=== PATIENT | male | born 1950 | race Caucasian/White ===

== ENCOUNTER 2025-05-12 10:37 | Emergency (ER) | payer MEDICARE, SELFPAY ==
--- NOTE | ~2025-05-12 | CT_ITS ---
EXAMINATION: CT ABDOMEN AND PELVIS WITHOUT CONTRAST CLINICAL INFORMATION: Left flank pain. COMPARISON: None available. TECHNIQUE: Multidetector volumetric imaging was performed from the superior aspect of the liver through the pubic symphysis. Sagittal and coronal reformatted images were obtained on the technologist's workstation. This CT examination was performed using dose optimization techniques as appropriate, variously including the following: *Automated exposure control *Adjustment of mA and/or kV according to patient size (this includes techniques or standardized protocols for targeted exams where dose is matched to indication/reason for exam; i.e. extremities or head) *Use of iterative reconstruction technique FINDINGS: LUNG BASES: 4 mm nodule posterior right lower lobe (series 8, image 3). This is nonspecific and likely a noncalcified granuloma. Follow-up in one year recommended in a high-risk patient. There are calcified granulomata in the right lower lobe. Lung bases otherwise clear. No effusions. Heart size is normal. LIVER, GALLBLADDER, AND BILIARY TREE: The unenhanced liver is normal in size, shape, and attenuation. No focal hepatic lesion or biliary ductal dilatation is present. The gallbladder is surgically absent. PANCREAS: Unremarkable. SPLEEN: Unremarkable. ADRENAL GLANDS: Unremarkable. KIDNEYS AND URETERS: There is moderate left hydronephrosis and proximal hydroureter. There is an obstructing 6 mm calculus in the distal left ureter, a few centimeters proximal to the UVJ. The left kidney is otherwise normal. The right kidney has a normal appearance. The right ureter is nondilated. BLADDER: Suboptimally distended but grossly normal. GASTROINTESTINAL TRACT: The small and large bowel are unremarkable. The appendix is unremarkable. ABDOMINAL WALL: No significant hernia is appreciated. LYMPH NODES: No abnormal lymphadenopathy is present. VASCULAR: There is moderate atheromatous calcification of the aorta and iliac vessels. There is no aneurysm. PELVIC VISCERA: The prostate is minimally enlarged, measuring 4.5 cm in diameter. OSSEOUS STRUCTURES: There is no suspicious lytic or blastic bone lesion. There are extensive degenerative changes throughout the imaged spine, with a mild right convex lumbar scoliosis. There are mild hip joint degenerative changes bilaterally. CT/CT abdomen pelvis wo IV con IMPRESSION: 1. Moderate left hydronephrosis and hydroureter secondary to a 6 mm obstructing calculus in the distal left ureter. 2. No additional renal or ureteral calculi. 3. Additional ancillary findings as detailed in the body of the report. Electronically signed by: Wing Redman MD 05/12/2025 12:13 PM EDT RP
[2025-05-12 10:50] VITALS: BP 154/94; PULSE 84; RESP 16; TEMP 36.7; O2SAT 97; BMI 31.3
--- NOTE | 2025-05-12 10:58 | ED_ITS ---
HPI - General Adult General Chief complaint: Abdominal Pain Stated complaint: L Side- Lower Abd Pain Time Seen by Provider: 05/12/25 14:23 Source: patient and group manager Mode of arrival: ambulatory Limitations: language barrier (Cymro-speaking) History of Present Illness ED Provider: Fritz Webb PA-C HPI narrative: 74-year-old Cymro-speaking male accompanied by his daughter with medical history of hyperthyroidism, kidney stones, who resides full-time in [place] presents to the ED due to 3 days of left-sided abdominal pain, flank pain, difficulty urinating. Patient states he follows a doctor in [place] and has had two medical interventions for kidney stones in the past. Patient states he was aware of this current kidney stone, and his doctor in [place] has been evaluating and following this kidney stone waiting for it to descend and pass. Denies chest pain, shortness of breath, nausea, vomiting, black or tarry stool MD complaint: L flank pain Onset (ago): day(s) (3) Location: abdomen Radiation: other (Groin) Severity: moderate Quality: aching Pain Consistency: constant Relieving factors: none Exacerbating factors: none Associated symptoms: other (Dysuria) Treatments prior to arrival: none Related Data Previous Rx's ?Medication ?Instructions ?Recorded prednisone 20 mg tablet 20 mg PO DAILY 5 days #5 tab s 05/12/25 tamsulosin 0.4 mg capsule 0.4 mg PO DAILY 2 weeks #14 caps 05/12/25 Allergies Allergy/AdvReac Type Severity Reaction Status Date / Time No Known Allergies Allergy Verified 05/12/25 10:52 Review of Systems 2 Review of Systems: CONST: Negative for fever, body aches and chills. HENT: Negative for neck pain/stiffness, headache, congestion, sore throat, swelling. EYES: Negative for discharge/pain or vision changes. RESP: Negative for cough/hemoptysis and shortness of breath. CV: Negative chest pain, difficulty breathing, palpitations. ABD: Negative nausea, vomiting. POS L flank pain, radiating to LLQ and to L groin : Negative increase frequency, dysuria, blood in urine or stool. MUSC: Negative for muscle aches, edema. SKIN: Negative rash, lesions/sores. NEURO: Negative headache, dizziness, weakness. Yes all other systems are reviewed and are negative PMFSH Past Medical History Attestation statement: The following information was validated with the patient. Source: old records reviewed and obtained from family (Daughter at bedside corroborating history) Social History Social History Smoked in Last 30 Days: No Use of substances other than those prescribed or required for medical reasons: No Advance Directives: No Advance Directives Information Provided: No Do you have a plan to hurt others: No Plan Physical Exam ED Vital Signs: Vital Signs - 24 hr 05/12/25 10:50 05/12/25 14:39 05/12/25 15:38 Temperature 98.1 F Pulse Rate 84 73 66 Respiratory Rate 16 16 18 Blood Pressure 154/94 H 161/85 H 154/88 H Pulse Oximetry 97 99 96 Oxygen Delivery Method Room Air Room Air Room Air 05/12/25 16:27 05/12/25 17:48 Temperature 98.4 F 98.4 F Pulse Rate 67 67 Respiratory Rate 15 15 Blood Pressure 145/92 H 145/92 H Pulse Oximetry 96 96 Oxygen Delivery Method Room Air Room Air BMI result Body Mass Index 31.3 GENERAL APPEARANCE: ?AxOx4, generally well-appearing, no acute distress. HEENT: ?NC, AT. MMM. EOMI, clear conjunctiva, oropharynx clear. HEART:? Normal rate and regular rhythm, normal S1/S1, no m/r/g LUNGS:? CTAB, moving air well. No crackles or wheezes are heard. ABDOMEN: ?Soft, nontender, nondistended with good bowel sounds heard. BACK: No CVAT, no obvious deformity. L CVA TTP, no masses of L groin. No overlying skin changes EXTREMITIES: ?Without cyanosis, clubbing or edema. NEUROLOGICAL: ?Grossly nonfocal. Alert and oriented, moving all 4 extremities. Observed to ambulate with normal gait. Skin: ?Warm and dry without any rash. Course Course Course Narrative: RME, this is a rapid medical exam performed by Prashanth Hurtado please refer to primary provider for complete H&P- 74-year-old male presents for evaluation left-sided abdominal pain radiating to his groin for few days. He does have a history kidney stones. Plan for labs, urinalysis Medications Administered Discontinued Medications Generic Name Dose Route Start Last Admin Trade Name Freq PRN Reason Stop Dose Admin Lactated Ringer's 500 mls @ 999 mls/hr 05/12/25 16:30 05/12/25 17:20 Lr IV 05/12/25 17:00 Infused .Q31M ALISTAIR Infusion Ketorolac Tromethamine 15 mg 05/12/25 15:04 05/12/25 15:36 Ketorolac Tromethamine 15 Mg/Ml Vial IVPUSH 05/12/25 15:05 15 mg ONCE ONE Administration Prednisone 20 mg 05/12/25 16:19 05/12/25 16:40 Prednisone 20 Mg Tablet PO 05/12/25 16:20 20 mg ONCE ONE Administration Tamsulosin HCl 0.4 mg 05/12/25 16:19 05/12/25 16:40 Tamsulosin Hcl 0.4 Mg Capsule PO 05/12/25 16:20 0.4 mg ONCE ONE Administration Medical Decision Making Medical Decision Making MDM Narrative: 74-year-old Cymro-speaking male accompanied by his daughter with medical history of hyperthyroidism, kidney stones, who resides full-time in [place] presents to the ED due to 3 days of left-sided abdominal pain, flank pain, difficulty urinating. Patient states he follows a doctor in [place] and has had two medical interventions for kidney stones in the past. Patient states he was aware of this current kidney stone, and his doctor in [place] has been evaluating and following this kidney stone waiting for it to descend and pass. VSS, in no acute distress, nontoxic appearing. On physical exam there is left- sided CVA TTP, no inguinal masses, no overlying skin changes. UA reveals 3+ blood, > 20 RBCs per HPF, without indication of infection. Labs reveal elevated creatinine at 1.8, no priors for comparison. CT reveals 6 mm obstructive stone of the left kidney with hydronephrosis and proximal hydroureter. Stone is in the distal left ureter a few cm proximal to the UVJ. Patient afebrile, without leukocytosis, mild TTP of the left CVA, UA without infection- less likely pyelonephrosis or UTI. Incidental finding of 4 mm nodule posterior right lower lobe, most likely noncalcified granuloma, calcified granulomata of the right lower lobe. Currently consulting Dr. Butlre urologist for recommendations. Will medicate with 15 mg IV Toradol for pain management. Course 16:29- spoke with urologist Dr. Butler who recommended PO 20mg prednisone and .4mg tamsulosin for management of renal calculi. Giving 500mL of IV fluids for elevated creatinine. 17:31- Patient feels better after medicating with fluids and IV toradol, has a PCP appointment in [place] scheduled for 05/20 which is 2 days after he returns home. Feels confident to go home for self care. Patient will be discharged with 2 week course of .4mg Tamsulosin, and 5 day course of 20mg prednisone to relax the musculature of the bladder/ureters and treat inflammation. Counseled patient on taking Tylenol every 6 hours for pain, and refraining from NSAIDS while on prednisone. Counseled patient on strict return precautions. He is in understanding with the plan. Differential Diagnosis Differential Diagnoses: The differential diagnosis associated with the presentation includes Renal calculi Renal colic Pyelonephritis UTI Admission/Observation Consideration of admission/observation: Escalation of care including admission/observation considered Consult Healthcare Provider Management of the patient was discussed with: Hemotherapist (Urology) Lab Data MDM Lab Attestation statement: I reviewed the patient's lab results. 05/12/25 11:09 05/12/25 11:09 Labs: Lab Results 05/12/25 05/12/25 Range/Units 11:09 11:51 WBC 7.7 (4.8-10.8) X10*3/uL RBC 4.61 (4.60-5.80) X10*6/uL Hgb 14.5 (14.0-18.0) g/dl Hct 42.4 (42.0-52.0) % MCV 92.0 (80.0-98.0) fL MCH 31.5 (27.0-33.0) pg MCHC 34.2 (31.0-36.0) g/dl RDW 13.3 (11.0-16.0) % Plt Count 178 (160-400) X10*3/uL MPV 8.5 L (9.4-12.4) fL Immature Gran % (Auto) 0.3 (0.0-0.4) % Neut % (Auto) 58.4 (45-73) % Lymph % (Auto) 23.0 (20-40) % [place] % (Auto) 14.0 H (2-11) % Eos % (Auto) 3.5 (0-4) % Baso % (Auto) 0.8 (0-2) % Lymph # (Auto) 1.8 (1.2-4.9) X10*3/uL [place] # (Auto) 1.1 (0.1-1.2) X10*3/uL Eos # (Auto) 0.3 (0.0-0.4) X10*3/uL Baso # (Auto) 0.1 (0.0-0.2) X10*3/uL Abs Immat Gran (auto) 0.02 (0.00-0.03) X10*3/uL Absolute Neuts (auto) 4.5 (2.0-8.3) x10*3/uL Absolute Nucleated RBC 0.000 (0.0-0.012) X10*3/uL Nucleated RBC % (auto) 0.0 (0.0-0.2) /100WBC Sodium 140 (135-145) mmol/L Potassium 4.3 (3.3-5.1) mmol/L Chloride 108 (96-108) mmol/L Carbon Dioxide 27 (22-29) mmol/L Anion Gap 9 L (12-20) BUN 22 H (9-16) mg/dL Creatinine 1.80 H (0.5-1.4) mg/dL Estim Creat Clear Calc 36.6 Estimated GFR 37 Random Glucose 96 (60-115) mg/dL Calcium 9.3 (8.4-10.2) mg/dL Total Bilirubin 0.8 (0.0-1.0) mg/dL AST 34 (5-37) U/L ALT 25 (0-40) U/L Alkaline Phosphatase 67 (39-117) U/L Total Protein 7.0 (6.5-8.0) g/dL Albumin 4.0 (3.5-5.0) g/dL Lipase 27 (8-78) U/L Urine Color Yellow Urine Appearance Clear Urine pH 5.5 (5.0-9.0) Ur Specific [place] 1.020 (1.005-1.025) Urine Protein Trace (Neg-Trace) mg/dL Urine Glucose (UA) Negative (Negative) mg/dL Urine Ketones Negative (Negative) mg/dL Urine Blood Large (3+) H (Negative) Urine Nitrite Negative (Negative) Ur Leukocyte Esterase Negative (Negative) Urine RBC >20 H (0-2) /HPF Urine WBC 0-5 (0-5) /HPF Ur Squamous Epith Cells 0-2 (0-2) /HPF Urine Bacteria None Seen (None Seen) Hyaline Casts 0-2 (0-2) /LPF Independent Interpretation I performed an independent interpretation of an: CT Scan Radiology Impression Discussion of test interpretation with radiology: I have reviewed the radiologist's reading. Radiologist Impression: FINDINGS: LUNG BASES: 4 mm nodule posterior right lower lobe (series 8, image 3). This is nonspecific and likely a noncalcified granuloma. Follow-up in one year recommended in a high-risk patient. There are calcified granulomata in the right lower lobe. Lung bases otherwise clear. No effusions. Heart size is normal. LIVER, GALLBLADDER, AND BILIARY TREE: The unenhanced liver is normal in size, shape, and attenuation. No focal hepatic lesion or biliary ductal dilatation is present. The gallbladder is surgically absent. PANCREAS: Unremarkable. SPLEEN: Unremarkable. ADRENAL GLANDS: Unremarkable. KIDNEYS AND URETERS: There is moderate left hydronephrosis and proximal hydroureter. There is an obstructing 6 mm calculus in the distal left ureter, a few centimeters proximal to the UVJ. The left kidney is otherwise normal. The right kidney has a normal appearance. The right ureter is nondilated. BLADDER: Suboptimally distended but grossly normal. GASTROINTESTINAL TRACT: The small and large bowel are unremarkable. The appendix is unremarkable. ABDOMINAL WALL: No significant hernia is appreciated. LYMPH NODES: No abnormal lymphadenopathy is present. VASCULAR: There is moderate atheromatous calcification of the aorta and iliac vessels. There is no aneurysm. PELVIC VISCERA: The prostate is minimally enlarged, measuring 4.5 cm in diameter. OSSEOUS STRUCTURES: There is no suspicious lytic or blastic bone lesion. There are extensive degenerative changes throughout the imaged spine, with a mild right convex lumbar scoliosis. There are mild hip joint degenerative changes bilaterally. CT/CT abdomen pelvis wo IV con IMPRESSION: 1. Moderate left hydronephrosis and hydroureter secondary to a 6 mm obstructing calculus in the distal left ureter. 2. No additional renal or ureteral calculi. 3. Additional ancillary findings as detailed in the body of the report. Electronically signed by: Wing Redman MD 05/12/2025 12:13 PM EDT RP Dictated By: Wing Redman MD Signed By: <Electronically signed by Wing Redman MD in OV> 05/12/25 1213 Independent Historian Clinical information obtained from an independent historian. History obtained from or confirmed by: Other (Daughter at bedside) External Record Review External record reviewed: Inpatient record, Office record and Outpatient record Patient lives in [place] does not have any medical history here in the [facility] Chronic Conditions Patient?s care impacted by: Other (Hyperthyroidism) Discharge Plan Discharge Clinical Impression: Calculus, renal Patient Disposition: Home, Self-Care Instructions: Kidney Stones (ED) Additional Instructions: You were evaluated in the ED today due to left-sided abdominal pain radiating to the groin, and difficulty with urination. Your labs today revealed an elevated creatinine at 1.8 suggesting your kidneys are under stress. You were given IV fluids to address this. You were also medicated with 15 mg of IV Toradol for pain management with good effect. You were given 20 mg prednisone which is a steroid for inflammation, and 0.4 mg of tamsulosin which is a muscle relaxer that relaxes the muscles of your bladder and ureters to allow for easier passing of your stone. The urologist was consulted who recommended this treatment. You were urged to follow up with your primary care doctor when you get home to [place]. While on the steroids please do not take any ibuprofen, Motrin, or any other NSAID. You can take Tylenol every 6 hours for additional pain management. Please return to the ED if you experience fever, chills, nausea, vomiting, worsening pain, blood in the urine or any other new/concerning/worsening symptoms Prescriptions: New tamsulosin 0.4 mg capsule 0.4 mg PO DAILY 14 Days Qty: 14 0RF prednisone 20 mg tablet 20 mg PO DAILY 5 Days Qty: 5 0RF Interventions: ED Discharge Assessment Last Done: 05/12/25 17:48 Discharge Date/Time: 05/12/25 17:49 Print Language: Cymro
[2025-05-12 11:13] LABS: MANUAL DIFF FLAG NO
[2025-05-12 11:15] LABS: Basophils Absolute Auto 0.1 X10*3/uL (0.0-0.2); Basophils Percent Auto 0.8 % (0-2); Eosinophils Absolute Auto 0.3 X10*3/uL (0.0-0.4); Eosinophils Percent Auto 3.5 % (0-4); Hematocrit 42.4 % (42.0-52.0); Hemoglobin 14.5 g/dl (14.0-18.0); Imm Gran Abs Auto 0.02 X10*3/uL (0.00-0.03); Imm Gran Pct Auto 0.3 % (0.0-0.4); Lymphocytes Absolute Auto 1.8 X10*3/uL (1.2-4.9); Mean Corpuscular HGB Conc 34.2 g/dl (31.0-36.0); Mean Corpuscular Hemoglobin 31.5 pg (27.0-33.0); Mean Platelet Volume 8.5 fL (9.4-12.4); Monocytes Absolute Auto 1.1 X10*3/uL (0.1-1.2); Neutrophils Absolute Auto 4.5 x10*3/uL (2.0-8.3); Neutrophils Percent Auto 58.4 % (45-73); Platelet Count 178 X10*3/uL (160-400); Red Blood Count 4.61 X10*6/uL (4.60-5.80); Red Cell Distribution Width 13.3 % (11.0-16.0); White Blood Count 7.7 X10*3/uL (4.8-10.8)
[2025-05-12 11:30] LABS: Alanine Aminotransferase 25 U/L (0-40); Alkaline Phosphatase 67 U/L (39-117); Anion Gap 9 (12-20); Aspartate Amino Transferase 34 U/L (5-37); Bilirubin Total 0.8 mg/dL (0.0-1.0); Blood Urea Nitrogen 22 mg/dL (9-16); Calcium 9.3 mg/dL (8.4-10.2); Carbon Dioxide 27 mmol/L (22-29); Chloride 108 mmol/L (96-108); Creatinine Clr Calc Pharmacy 36.6; Estimated Glomerular Filt Rate 37; Glucose Random 96 mg/dL (60-115); Lipase 27 U/L (8-78); Potassium 4.3 mmol/L (3.3-5.1); Sodium 140 mmol/L (135-145)
[2025-05-12 11:59] LABS: Appearance Urine Clear; Color Urine Yellow; Glucose Urine UA Negative (Negative); Leukocyte Esterase Urine Negative (Negative); Nitrite Urine Negative (Negative); PH 5.5 (5.0-9.0); UMIC TRIGGER UACC YES; Urine Blood Large (3+) (Negative); Urine Ketones Negative (Negative); Urine Protein Trace mg/dL (Neg-Trace)
[2025-05-12 12:01] LABS: Bacteria Urine None Seen (None Seen); Hyaline Casts Urine 0-2 /LPF (0-2); RBC Urine >20 /HPF (0-2); Squamous Epithelial Cell Urine 0-2 /HPF (0-2); WBC Urine 0-5 /HPF (0-5)
[2025-05-12 14:39] VITALS: BP 161/85; PULSE 73; RESP 16; O2SAT 99
[2025-05-12] MEDS: Ketorolac Tromethamine 15 MG/ML VIAL IVPUSH (15:36)
[2025-05-12 15:38] VITALS: BP 154/88; PULSE 66; RESP 18; O2SAT 96
[2025-05-12 16:27] VITALS: BP 145/92; PULSE 67; RESP 15; TEMP 36.9; O2SAT 96
[2025-05-12] MEDS: predniSONE 20 MG TABLET PO (16:40)
[2025-05-12] MEDS: Tamsulosin HCL 0.4 MG CAPSULE PO (16:40)
[2025-05-12] MEDS: Lactated Ringers 500 ML 999 ML IV (16:41)
[2025-05-12 17:48] VITALS: BP 145/92; PULSE 67; RESP 15; TEMP 36.9; O2SAT 96
== END 2025-05-12 17:49 | disposition home or self-care (01) ==
PROVIDERS: Physician Assistant; Emergency Provider Emergency Medicine
DX: N13.2 Hydronephrosis with renal and ureteral calculous obstruction (principal); R10.9 Unspecified abdominal pain; R39.198 Other difficulties with micturition; Z79.899 Other long term (current) drug therapy
CPT/HCPCS: 36415; 74176; 80053; 81001; 83690; 85025; 96361; 96374; 99284; 99285; J1885; J7120

== ENCOUNTER → 2025-05-12 10:59 | Outpatient (BNV) | payer SELFPAY | PROVIDERS: Visit Provider Radiology Diagnostic Radiology | DX: N13.2 Hydronephrosis with renal and ureteral calculous obstruction (principal); N13.4 Hydroureter | CPT/HCPCS: 74176 ==